=== PATIENT | female | born 1930 | race Caucasian/White ===

== ENCOUNTER → 2018-04-10 13:17 | Outpatient (CLI) | payer MEDICARE, OTHER ==
[2013-04-01 15:55] VITALS: BMI 25.8
--- NOTE | ~2018-04-10 | EC ---
PATIENT:STONEY DUNLAP DATE OF SERVICE: 04/10/18 SEX: F MEDICAL RECORD: [id number] DATE OF : [birth year] LOCATION:[facility] AGE OF PATIENT: 88 ADMISSION DATE: 04/10/18 REFERRING PHYSICIAN: INTERPRETING PHYSICIAN: DAVID GUSTAFSON MD ECHOCARDIOGRAM REPORT ECHO CHARGES 4 ECHO COMPLETE Date: 04/10/18 CLINICAL DIAGNOSIS: HEART MURMUR ECHOCARDIOGRAPHIC MEASUREMENTS (adult normal given) AC root (d.<3.7cm) 3.8 cm LV Septum d (<1.2 cm> 1.7 cm Valve Excursion 1.4 cm LV Septum (systole) 1.9 cm Left Atria (s.<4.0cm> 4.0 cm LVPW d(<1.2cm) 1.7 cm RV (d.<2.3cm) 3.3 cm LVPW (sytole) 1.9 cm LV diastole(<5.6CM) 3.6 cm MV E-F(>70mm/sec) cm LV systole 2.3 cm LVOT Diameter 1.7 cm MV exc.(>10mm) cm Est.ejection fraction (50-75%) % DOPPLER: LVIT cm/sec A 39.0 cm/sec E 118 cm/sec LA cm/sec RVSP 69 mmHg LVOT 104 cm/sec AOP1/2T m/s Asc. Ao 275 cm/sec RVOT 76 cm/sec RA cm/sec PA 134 cm/sec AV Gradient Peak 30.26mmHg AV Mean 15.41mmHg AV Area 1.0 cm MV Gradient Peak 6.91 mmHg MV Mean 2.29 mmHg MV Area cm COMMENTS: Bridge Carpenter: Elisabeth VALDEZ Glass Cutting Machine Operator: 1 Dr. Gustafson TAPE# PACS Pericardial Effusion N DATE OF SERVICE: 04/10/2018 FINDINGS: 1. Left ventricular chamber size is within normal limits. Left ventricular systolic function is normal. Overall ejection fraction estimated at 55%. 2. Left atrium is in the upper limits of normal at 4.0 cm. Right atrium and right ventricle chamber sizes are mildly dilated. 3. Valvular structures: Aortic valve demonstrates moderate calcific aortic stenosis, valve area calculates to 1.0 cm-squared and there is gradient of 30 mm across the valve. The remaining valvular structures have normal structure and ECHOCARDIOGRAM REPORT [id number] STONEY DUNLAP. 4. Doppler interrogation elsewise reveals mild mitral regurgitation, [id number] tricuspid regurgitation, no other valvular insufficiency or stenosis. Pulmonary systolic pressure is elevated estimated at 69 mmHg. 5. No evidence of pericardial effusion or left ventricular thrombus. TRANSINT:[id number] Voice Confirmation ID: [id number] DOCUMENT ID: [id number] DAVID GUSTAFSON MD at 1337 CC: [id number] DICTATION DATE: 04/10/18 184 LAN SPECIALIST: 04/10/182226 DEP CLI 04/10/18 [facility] [address] [place] [address]
[~2018-04-10 13:17] MED LIST: COVERA-HS240 MG; ISOPTIN SR240 MG PO; NORCO 10/325 TA1 TA1 PO
== END | disposition home or self-care (01) ==
LOC: D.ECHO 13:00
DX: R01.1 Cardiac murmur, unspecified (principal)

== ENCOUNTER → 2018-05-12 15:00 | Outpatient (CLI) | payer MEDICARE, OTHER ==
[2013-04-01 15:55] VITALS: BMI 25.8
== END | disposition home or self-care (01) ==
LOC: D.CT 15:00
DX: I65.23 Occlusion and stenosis of bilateral carotid arteries (principal); I73.9 Peripheral vascular disease, unspecified

== ENCOUNTER 2018-05-27 12:01 | Inpatient (IN) | payer MEDICARE, OTHER ==
[~2018-05-27] VITALS: Ht 165.1 cm; Wt 60.9 kg
[~2018-05-27 12:01] MED LIST changes: +CALAN SR240 MG PO; -COVERA-HS240 MG
[2018-05-27 12:47] LABS: ALBUMIN 3.7 g/dL (3.4-5.0); ANION GAP 18.3 mmol/L (8-16); BILIRUBIN - TOTAL 0.6 mg/dL (0.2-1.3); CALCIUM 9.2 mg/dL (8.5-10.1); CARBON DIOXIDE 22.7 mmol/L (21.0-32.0); CREATININE - SERUM 1.1 mg/dL (0.6-1.3); PROTEIN - SERUM 6.8 g/dL (6.4-8.2)
[2018-05-27] MEDS ORDERED: ASPIRIN EC81 M1 PO (12:51)
[2018-05-27 13:00] LABS: HEMATOCRIT 38.5 % (36.0-48.0); HEMOGLOBIN 12.8 g/dL (12-16); MCH 32.8 pg (26.0-34.0); MCHC 33.2 g/dL (31.0-37.0); MCV 98.7 fL (80.0-100.0); MEAN PLATELET VOLUME 11.4 fL (7.4-10.4); RBC 3.9 10x6/uL (4.00-5.40); RDW 13.4 % (11.5-14.5); WBC 9.5 10x3/uL (4.8-10.8)
[2018-05-27 13:20] LABS: APPEARANCE CLEAR (CLEAR); APTT 26.4 SECONDS (22.8-39.4); BILIRUBIN NEGATIVE (NEGATIVE); COLOR DK YELLOW (YELLOW); GLUCOSE NEGATIVE (NEGATIVE); INR 1.1 (0.85-1.17); KETONE NEGATIVE (NEGATIVE); NITRITE NEGATIVE (NEGATIVE); PROTEIN 1+ mg/dL (NEGATIVE); PROTIME 13.7 SECONDS (11.6-15.0); SPECIFIC GRAVITY 1.015 (1.005-1.020)
[2018-05-27 13:21] LABS: BACTERIA FEW /hpf (NONE SEEN); EPITHELIAL CELLS RARE /hpf (0-5); RED CELLS - URINE RARE /hpf (0-5)
[2018-05-29] VITALS (27 sets, daily range): BP systolic 93–157; BP diastolic 35–65; BMI 24.1; BMI 25.1
--- NOTE | 2018-05-29 18:00 | NUR ---
PT ARRIVED TO ROOM FROM OR AROUND 1753. ON 10L OF O2 VIA SIMPLE MASK. HAS INCISION ON R ANTERIOR NECK WITH DRESING CDI. RU CHEST ANATOLY DRAIN CDI. HAS L-SUBCLAVIAN CVL WITH CLEVIPREX AT 8ML/HR. NS AT 100ML/HR. NS INFUSION CHANGED TO 30ML/HR PER ORDERS. HAS L-RADIAL MEDARDO. SBP IN 120S. MCNULTY CATHETER IN PLACE. WITH YELLOW URINE NOTED. PEDAL PULSES PALPABLE. CONNECTED TO STUMP SHOOTER. A-LINE ZEROED. WILL CONTINUE TO MONITOR.
--- NOTE | 2018-05-29 18:15 | NUR ---
LOPRESSOR WAS GIVEN PER ORDERS. BP CONTINUED TO INCREASE. CLEVIPREX INCREASED TO 10ML/HR. NITRO RESTARTED AT 5ML/HR. WILL CONTINUE TO MONITOR.
--- NOTE | 2018-05-29 18:30 | NUR ---
HAVE BEEN TITRATING CLEVIPREX AND NITRO. CLEVIPREX PAUSED AT THIS TIME. NITRO IS AT 25ML/HR AT THIS TIME.
--- NOTE | 2018-05-29 18:45 | NUR ---
CLEVIPREX WAS ON PAUSE. BP ELEVATED AGAIN CLOSE TO 140S. CLEVIPREX RESTARTED AT 8ML/HR.
--- NOTE | 2018-05-29 19:02 | NUR ---
CLEVIPREX AT 12ML/HR. NITRO AT 30ML/HR HR.
--- NOTE | 2018-05-29 19:30 | NUR ---
REPORT RECEIVED, ASSESSMENT COMPLETE PER FLOW SHEET, PT SUPINE WITH HOB ELEVATED, ART LINE AND CVP ZEROED, NO ACUTE DISTRESS, ICE PACK PER ORDERS, PT AAOx4, SCD'S IN PLACE, PT WEARS DENTURES UPPER AND LOWER, PT DENIES PAIN OR SOB, PPP, VSS, WILL CONTINUE TO ASSESS
[2018-05-30] VITALS (57 sets, daily range): BP systolic 97–154; BP diastolic 34–82; Ht 165.1 cm; Wt 60.9 kg
--- NOTE | 2018-05-30 07:00 | NUR ---
SHIFT REPORT RECEIVED. RESTING WITH EYES CLOSED. AROUSES TO VOICE. HAS RIGHT ANTERIOR NECK INCISION WITH DRESSING CDI. RU CHEST ANATOLY DRAIN WITH BLOODY DRAINAGE DRESSING CDI. L-SUBCLAVIAN CVL WITH NITRO AT 5ML/HR. CEFAZOLIN INFUSING AT 100ML/HR VIA PIGGY BACK. HAS L-FOREARM RADIAL LINE. ZEROED AT THIS TIME. SBP IN 140S AT THIS TIME. WILL CONTINUE TO MONITOR.
--- NOTE | 2018-05-30 07:10 | NUR ---
NITRO DRIP INCREASED TO 10ML/HR TO HELP GET SBP WITHIN LIMITS.
--- NOTE | 2018-05-30 07:20 | NUR ---
CLEVIPREX INITIATED AT 4ML AT THIS TIME. BP REMAINS ELEVATED. WILL CONTINUE TO MONITOR AND TREAT.
--- NOTE | 2018-05-30 07:50 | NUR ---
CLEVIPREX AT 6ML/HR AT THIS TIME. PT SITTING UP IN BED EATING BREAKFAST. SBP CONTINUES HIGH. WILL CONTINUE TO MONITOR.
--- NOTE | 2018-05-30 08:15 | NUR ---
DR. ELLIOTT ASSESSED PT. ORDERED MEDARDO TO BE DISCONTINUED. ASKED TO CHECK BP ON BOTH ARMS AND COMPARE. IF BP IS SIMILAR ON BOTH ARMS. USE BP CUFF READINGS TO WEAN OFF NITRO AND CLEVIPREX. ORDERED LOPRESSOR 25MG TAB BID. FIRTS DOSE GIVEN PER ORDERS. WILL CONTINUE TO MONITOR.
--- NOTE | 2018-05-30 09:36 | NUR ---
CLEVIPREX HAS BEEN WEANED OFF. NITRO CONTINUES AT 10ML/HR. WILL CONTINUE TO WEAN TOLERATED. BP IN 130S-140S. CARLOS ESPINOZA AWARE OF BP AT THIS TIME. WILL CONTINUE TO MONITOR.
--- NOTE | 2018-05-30 10:40 | NUR ---
VERAPAMIL 240MG ER TAB GIVEN PER ORDERS. NITRO DRIP DECREASED TO 5ML/HR. WILL CONTINUE TO MONITOR AND WEAN OFF NITRO TOLERATED.
--- NOTE | 2018-05-30 10:50 | NUR ---
SBP 153. INCREASED NITRO DRIP BACK UP TO 10ML/HR. WILL CONTINUE TO MONITOR AND TREAT BP PER ORDERS.
--- NOTE | 2018-05-30 11:56 | NUR ---
VERIFIED WITH CARLOS IF PT COULD BE INCREASED TO REGULAR DIET. PT TOLERATING CLEAR LIQUIDS WELL. NO NAUSEA OR VOMITING NOTED. DIET CHANGED AT THIS TIME.
--- NOTE | 2018-05-30 12:25 | NUR ---
ANATOLY DRAIN DC'D PER ORDERS. TAGEDERM DRESSING APPLIED TO SITE. PT TOLERATED WELL. SBP IN 150S. INCREASED NITRO TO 12ML/HR. WILL CONTINUE TO MONITOR AND TREAT.
[2018-05-30 12:29] LABS: BASOPHILS 0 % (0-2); EOSINOPHILS 0 % (0-7); HEMATOCRIT 29.8 % (36.0-48.0); HEMOGLOBIN 9.8 g/dL (12-16); IMMATURE GRANULOCYTES 0.2 % (0-5); LYMPHOCYTES 10.5 % (15-50); MCH 32.1 pg (26.0-34.0); MCHC 32.9 g/dL (31.0-37.0); MCV 97.7 fL (80.0-100.0); MEAN PLATELET VOLUME 10.7 fL (7.4-10.4); MONOCYTES 10.2 % (2-11); NEUTROPHILS 79.1 % (40-80); RBC 3.05 10x6/uL (4.00-5.40); RDW 13.4 % (11.5-14.5); WBC 12.1 10x3/uL (4.8-10.8)
[2018-05-30 12:30] LABS: PLATELET COUNT 166 10x3/uL (130-400)
[2018-05-30 12:43] LABS: CALCIUM 8.2 mg/dL (8.5-10.1); CARBON DIOXIDE 24.2 mmol/L (21.0-32.0); POTASSIUM - SERUM 4.2 mmol/L (3.5-5.1)
--- NOTE | 2018-05-30 13:21 | NUR ---
EYES CLOSED APPEARS ASLEEP. SBP IN 130S. NITRO AT 12ML/HR. WILL CONTINUE TO MONITOR AND TREAT BP PER ORDERS.
--- NOTE | 2018-05-30 13:56 | NUR ---
FAMILY AT BEDSIDE. SBP IN 130S. I.S. BEST EFFORT 1500. NO FURTHER NEEDS. WILL CONTINUE TO MONITOR.
--- NOTE | 2018-05-30 15:23 | MORECARE ---
CASE MANAGEMENT DISCHARGE SUMMARY PATIENT: STONEY DUNLAP UNIT: [id number] ADM DATE: 05/29/18 AGE: 88 : [birth year] SEX: F ROOM/BED: [facility] AUTHOR: MARYJO CARLTON PHYSICIAN: REFERRING PHYSICIAN: YANA ELLIOTT MD DATE OF SERVICE: 05/30/18 Discharge Plan Patient Name: STONEY DUNLAP Facility: [facility]:[place] : 1930 Planned Disposition: Home or Self Care Anticipated Discharge Date: Discharge Date: Expected LOS: Initial Reviewer: [email or web address] Initial Review Date: 05/30/2018 Generated: 05/30/18 4:23 pm Patient Name: STONEY DUNLAP Page [id number] at 1523 All edits/amendments must be made on the electronic document DICTATION DATE: 05/30/18 152 COOKIE MIXER HELPER: BELINDA 05/30/18 152 RPT#: [id number] DC DATE: STATUS: ADM IN [facility] [address] [place] [address] END OF REPORT
--- NOTE | 2018-05-30 15:34 | MORECARE ---
CASE MANAGEMENT DISCHARGE SUMMARY PATIENT: STONEY DUNLAP UNIT: [id number] ADM DATE: 05/29/18 AGE: 88 : [birth year] SEX: F [facility] AUTHOR: MARYJO CARLTON PHYSICIAN: REFERRING PHYSICIAN: YANA ELLIOTT MD DATE OF SERVICE: 05/30/18 Discharge Plan Patient Name: STONEY DUNLAP Facility: [facility]:[place] : 1930 Planned Disposition: Home or Self Care Anticipated Discharge Date: Discharge Date: Expected LOS: Initial Reviewer: [email or web address] Initial Review Date: 05/30/2018 Generated: 05/30/18 4:34 pm Comments DCP- Discharge Planning Updated by [email or web address]: Fay Burris on 05/30/18 2:[address] Patient Name: STONEY DUNLAP Admission Status: Elective Accout number: [id number] Admission Date: 05-29-2018 : 1930 Admission Diagnosis:OCCLUSION AND STENOSIS OF RIGHT CAROTID ARTERY Attending: YANA ELLIOTT Current LOS: 1 Anticipated DC Date: Planned Disposition: Home or Self Care Primary Insurance: MEDICARE A & B Discharge Planning Comments: CM met with patient at bedside about discharge planning / needs. Patient states she lives alone. Patient states she plans to discharge to her home. States she will have family transport her home upon discharge. Denies need for home health or other community resource needs. States home environment is safe. Denies any discharge needs or concerns at this time. CM will continue to follow and assist as needed with discharge planning / needs. Armature Balancer: Fay Burris DCPIA - Discharge Planning Initial Assessment Updated by [email or web address]: Fay Burris on 05/30/18 3:27 pm * Is the patient Alert and Oriented? Yes * How many steps to enter\exit or inside your home? * PCP RAY RUFF APRN * [facility] * Preadmission Environment Home Alone * ADLs Independent * Other Equipment W/C, CANE, CRUTCHES * List name and contact numbers for known caregivers / representatives who currently or will assist patient after discharge: LINWOOD SHAW - DAUGHTER- [phone] * Verbal permission to speak to the caregivers and representatives has been obtained from the patient. N/A * Community resources currently utilized None * Additional services required to return to the preadmission environment? No * Can the patient safely return to the preadmission environment? Yes * Has this patient been hospitalized within the prior 30 days at any hospital? No Last DP export: 05/30/18 2:23 p Patient Name: STONEY DUNLAP Page [id number] at 1534 All edits/amendments must be made on the electronic document DICTATION DATE: 05/30/18 1533 CASE PACKER AND SEALER: BELINDA 05/30/18 153 RPT#: [id number] DC DATE: STATUS: ADM IN [facility] [address] [place] [address] END OF REPORT
--- NOTE | 2018-05-30 15:35 | NUR ---
SBP 112 AT THIS TIME. NITRO DRIP TURNED OFF A THIS TIME. WILL CONTINUE TO MINITOR.
--- NOTE | 2018-05-30 16:19 | NUR ---
HR DECREASED TO 30S AROUND 1600. PT WAS AAOX4. STATES "I FEEL FINE.". SBP IN 120S. DR. LEXI MORIN'S NURSE NOTIFIED OF CURRENT HEART RATE. ABG'S PERFORMED. HR CONTINUES IN 30S AND 40S. PT REMAINS AWAKE AND ALERT. WILL CONTINUE TO MONITOR.
--- NOTE | 2018-05-30 17:01 | NUR ---
SPOKE WITH PATIENCE. LOPRESSOR AND VERAPIMIL WILL BE PLACED ON HOLD FOR NOW. DR. ELLIOTT WANTS US TO KEEP CLOSE EYE ON PT, AND TO NOT ALLOW HER TO GET UP AT THIS TIME WITH A HR THIS LOW. PT RESTING COMFORTABLY. WILL CONTINUE TO MONITOR.
--- NOTE | 2018-05-30 18:23 | NUR ---
SBP IN 140S. HR REMAINS IN MID 40S. SON-IN-LAW AT BEDSIDE. PT RESTING COMFORTABLY. WILL CONTINUE TO MONITOR.
--- NOTE | 2018-05-30 19:00 | NUR ---
REPORT RECEIVED CARE ASSUMED. PT LAYING IN BED RESTING. NO SIGNS OF ACUTE DISTRESS NOTED. ASSESSMENT DONE SEE FLOW SHEET. SINUS SOPHIA NOTED HEMO STABLE.
--- NOTE | 2018-05-30 21:00 | NUR ---
CALL LIGHT ANSWERED. SOPHIA ON MONITOR. QUESTIONING AND TEACHING PROVIDED. WILL CONTINUE TO MONITOR.
--- NOTE | 2018-05-30 22:28 | NUR ---
RESTING HR IN LOW 60S. VISIBLE P WAVE NOTED. HEMO STABLE. WILL CONITNUE TO MONITOR.
[2018-05-31] VITALS (14 sets, daily range): BP systolic 96–161; BP diastolic 40–62
--- NOTE | 2018-05-31 05:00 | NUR ---
0300 REASSESSMENT DONE SEE FLOW SHEET. VSS. NO SIGNS OF ACUTE DSITRESS NOTED. 0500 COMPLETE BED BATH GIVEN. GOWN CHANGE. PT AMBULATED TO CHAIR MINIMAL ASSISTANCE GIVEN. NO SIGNS OF ACUTE DSITRESS NOTED WILL CONTINUE TO MONITOR.
--- NOTE | 2018-05-31 07:00 | NUR ---
REC'D CARE OF PT. UP IN CHAIR. DENIES NEEDS. WANTS TO "GO HOME". EXPLAINED TO HER THAT DR. ELLIOTT WOULD BE COMING AROUNG TO SEE HER AND HE WOULD BE DETERMINE IF SHE WAS READY TO GO HOME.
--- NOTE | 2018-05-31 07:37 | NUR ---
BREAKFAST TRAY SERVED.
--- NOTE | 2018-05-31 11:09 | NUR ---
DR. ELLIOTT AT BEDSIDE.
--- NOTE | 2018-05-31 11:43 | NUR ---
FAMILY AT BEDSIDE.
[2018-05-31] MEDS ORDERED: ACETAMINOPHEN325 MG PO (11:46)
[2018-05-31] MEDS ORDERED: CALAN SR120 MG PO (11:47)
--- NOTE | 2018-05-31 12:49 | NUR ---
DC'D LEFT SC CVL WITH TIP INTACT.
--- NOTE | 2018-05-31 12:49 | NUR ---
DC'D MCNULTY CATH FROM BLADDER.
--- NOTE | 2018-05-31 12:50 | NUR ---
FAMILY HELPING GET DRESSED TO GO HOME.
--- NOTE | 2018-05-31 13:14 | NUR ---
MEDS REVIEWED. DC INSTRUCTIONS REVIEWED. TRANSPORTED TO FRONT OF CVICU VIA WC AND ASISTED INTO VEHICLE WITHOUT DICCICULTY.
--- NOTE | 2018-06-01 13:27 | OP ---
PATIENT NAME: STONEY DUNLAP MEDICAL RECORD: [id number] :[birth year] LOCATION:[id number] ADMISSION DATE:05/29/18 SURGEON: JEROMY ELILOTT MD DATE OF OPERATION: 05/29/2018 SURGEON: Jeromy Elliott MD DIRECTOR MUSEUM OR ZOO: ANKIT Powell MD PROCEDURE PERFORMED: Right carotid endarterectomy. 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 ANESTHESIA: General endotracheal anesthesia. ESTIMATED BLOOD LOSS: 200 cc with Cell Saver retransfusion. SPECIMENS: Plaque. COMPLICATIONS: None. CONDITION: Stable. DISPOSITION: CV ICU. OPERATIVE FINDINGS: 1. Severely calcified plaque and a tortuous internal carotid. 2. EEG changes after clamping resolved with use of a shunt. 3. Neurologically intact to CV ICU. 4. Hypertension. PROCEDURE INDICATION: Left hemispheric TIA, severe right internal carotid artery stenosis and left carotid occlusion. PROCEDURE IN DETAIL: The patient was brought to the operating suite. General anesthesia was obtained, the patient was prepped and draped. An oblique incision was made in the patient's right neck. Subcutaneous tissue and platysma were divided. The common carotid artery was dissected out and encircled with a loop. External carotid and thyroid branch were dissected out and encircled with loop. Facial venous branch was divided between ligatures and suture ligatures. Internal carotid artery was dissected out distally well beyond the region tortuosity. Heparin was given. After the heparin had circulated, back flow on the internal carotid was controlled with a bulldog clamp and inflow was controlled with a vascular clamp. EEG was monitored and after about 30 seconds EEG changes were noted. Then, the clamps were removed to restore flow and EEG normalized. The shunt was prepared, then the artery was reclamped. Arteriotomy was made in the common carotid artery, taken through the region of dense calcification into a relatively normal region of internal carotid. Shunt was placed first proximally, then distally after flushing and with the shunt open, there were no further EEG or cerebral oximetry changes. The endarterectomy was begun in the common carotid artery where the plaque was divided and the severely calcified plaque was removed from the external carotid with an eversion endarterectomy. The plaque feathered well distally. Thorough irrigation was OPERATIVE REPORT [id number] HENRICH,STONEY L undertaken. All bits of loose debris were removed. A CorMatrix patch was sutured to the edge of the arteriotomy and prior to completing the anastomosis, the shunt was removed. Backbleeding was allowed from all 3 major vessels. Thorough irrigation was undertaken. Anastomosis was completed and flow restored first to the external carotid and then to the internal carotid. EEG remained normal. The interrupted sutures were used for hemostasis and the patient was hemodynamically stable. A drain was placed through a separate stab wound. Protamine was given. Thorough irrigation was undertaken. The wound was closed in 3 layers. Dermabond on the skin. Needle and sponge counts were reported as correct. The patient was taken to CV ICU in stable condition. TRANSINT:[id number] Voice Confirmation ID: [id number] DOCUMENT ID: [id number] JEROMY ELLIOTT MD at 1327 CC: JULITA CHAMBERS [id number] DICTATION DATE: 05/30/18 1253 MEDICAL PAYMENT POSTER: 05/30/18 2136 DIS IN 05/31/18 [place] [id number] [place] [address]
--- NOTE | 2018-06-02 10:31 | MORECARE ---
CASE MANAGEMENT DISCHARGE SUMMARY PATIENT: STONEY DUNLAP UNIT: [id number] ADM DATE: 05/29/18 AGE: 88 : [birth year] SEX: F ROOM/BED: [facility] AUTHOR: MARYJO CARLTON PHYSICIAN: REFERRING PHYSICIAN: YANA ELLIOTT MD DATE OF SERVICE: 06/02/18 Discharge Plan Patient Name: STONEY DUNLAP Facility: [facility]:[place] : 1930 Planned Disposition: Home or Self Care Anticipated Discharge Date: Discharge Date: 05/31/2018 Expected LOS: Initial Reviewer: [email or web address] Initial Review Date: 05/30/2018 Generated: 06/02/18 11:31 am Comments DCP- Discharge Planning Updated by [email or web address]: Fay Burris on 05/30/18 2:[address] Patient Name: STONEY DUNLAP Admission Status: Elective Accout number: [id number] Admission Date: 05-29-2018 : 1930 Admission Diagnosis:OCCLUSION AND STENOSIS OF RIGHT CAROTID ARTERY Attending: YANA ELLIOTT Current LOS: 1 Anticipated DC Date: Planned Disposition: Home or Self Care Primary Insurance: MEDICARE A & B Discharge Planning Comments: CM met with patient at bedside about discharge planning / needs. Patient states she lives alone. Patient states she plans to discharge to her home. States she will have family transport her home upon discharge. Denies need for home health or other community resource needs. States home environment is safe. Denies any discharge needs or concerns at this time. CM will continue to follow and assist as needed with discharge planning / needs. Blower Insulator: Fay Burris DCPIA - Discharge Planning Initial Assessment Updated by [email or web address]: Fay Burris on 05/30/18 3:27 pm * Is the patient Alert and Oriented? Yes * How many steps to enter\exit or inside your home? * PCP RAY RUFF APRN * Pharmacy [facility] * Preadmission Environment Home Alone * ADLs Independent * Other Equipment W/C, CANE, CRUTCHES * List name and contact numbers for known caregivers / representatives who currently or will assist patient after discharge: LINWOOD SHAW - DAUGHTER- [phone] * Verbal permission to speak to the caregivers and representatives has been obtained from the patient. N/A * Community resources currently utilized None * Additional services required to return to the preadmission environment? No * Can the patient safely return to the preadmission environment? Yes * Has this patient been hospitalized within the prior 30 days at any hospital? No Coverage Notice Reviewer: [email or web address] Jannie Del Valle Notice Issued Date-Time: 05/31/2018 12:25 Notice Type: IM Discharge Notice Notice Delivered To: Family Member Relationship to Patient: Son in Law Slurry Blender Name: Delivery Method: HAND - Hand Delivered Elvia Days: Prior Verbal Notification: Recipient Understood Notice: Yes Recipient Signature: Yes Med Rec Note Co-signed by Attending: Coverage Notice Comment: Last DP export: 05/30/18 2:34 p Patient Name: STONEY DUNLAP Page 17058 at 1031 All edits/amendments must be made on the electronic document DICTATION DATE: 06/02/18 1030 VISITING PROFESSOR: BELINDA 06/02/18 1030 RPT#: [id number] DC DATE:05/31/18 STATUS: DIS IN [facility] [address] [place] [address] END OF REPORT
== END 2018-05-31 13:20 | disposition home or self-care (01) | DRG 38 ==
LOC: D.CVICU 05-29 09:20 → D.SDCHOLD 05-29 09:20 → D.CVICU 05-29 14:39
PROVIDERS: ADMIT Thoracic Surgery (Cardiothoracic Vascular Surgery)
PROC: 03UK0JZ Supplement Right Internal Carotid Artery with Synthetic Substitute, Open Approach (ICD-10-PCS; 2018-05-29)
PROC: 03CK0ZZ Extirpation of Matter from Right Internal Carotid Artery, Open Approach (ICD-10-PCS; principal; 2018-05-29 14:15)
DX: I65.23 Occlusion and stenosis of bilateral carotid arteries (principal); L97.819 Non-pressure chronic ulcer of other part of right lower leg with unspecified severity; I10 Essential (primary) hypertension; I73.9 Peripheral vascular disease, unspecified

== ENCOUNTER 2018-05-31 22:44 | Inpatient (IN) | payer MEDICARE, OTHER ==
[~2018-05-31] VITALS: Ht 165.1 cm; Wt 61.7 kg
[~2018-05-31 22:44] MED LIST changes: +ACETAMINOPHEN325 MG PO; +ASPIRIN EC81 M1 PO; +CALAN SR120 MG PO
--- NOTE | 2018-05-31 23:45 | NUR ---
PATIENT LAYING IN BED. RESPIRATIONS ARE EVEN AND UNLABORED. NO DISTRESS NOTED. COLOR WNL FOR RACE. PT FAMILY MEMBER AT BEDSIDE. WILL CONTINUE TO MONITOR PATIENT.
[2018-05-31 23:59] LABS: BASOPHILS 0.1 % (0-2); EOSINOPHILS 0.4 % (0-7); IMMATURE GRANULOCYTES 0.7 % (0-5); LYMPHOCYTES 10.1 % (15-50); MCH 33.2 pg (26.0-34.0); MCHC 33.7 g/dL (31.0-37.0); MCV 98.7 fL (80.0-100.0); MEAN PLATELET VOLUME 11.3 fL (7.4-10.4); MONOCYTES 10.8 % (2-11); NEUTROPHILS 77.9 % (40-80); PLATELET COUNT 170 10x3/uL (130-400); RDW 13.6 % (11.5-14.5); WBC 13.5 10x3/uL (4.8-10.8)
[2018-06-01] VITALS (24 sets, daily range): BP systolic 99–184; BP diastolic 39–91; BMI 22.7
[2018-06-01 00:17] LABS: APPEARANCE CLEAR (CLEAR); BILIRUBIN NEGATIVE (NEGATIVE); COLOR YELLOW (YELLOW); GLUCOSE NEGATIVE (NEGATIVE); HEMATOCRIT 37.1 % (36.0-48.0); HEMOGLOBIN 12.5 g/dL (12-16); KETONE NEGATIVE (NEGATIVE); NITRITE NEGATIVE (NEGATIVE); PROTEIN NEGATIVE (NEGATIVE); RBC 3.76 10x6/uL (4.00-5.40); SPECIFIC GRAVITY 1.015 (1.005-1.020); UROBILINOGEN NORMAL (NORMAL)
[2018-06-01 00:20] LABS: ALBUMIN 3.2 g/dL (3.4-5.0); ANION GAP 17.4 mmol/L (8-16); BILIRUBIN - TOTAL 0.65 mg/dL (0.2-1.3); CARBON DIOXIDE 21.2 mmol/L (21.0-32.0); POTASSIUM - SERUM 3.6 mmol/L (3.5-5.1); PROTEIN - SERUM 6.8 g/dL (6.4-8.2)
[2018-06-01 00:29] LABS: THYROID STIMULATING HORMONE 1.37 uIU/mL (0.36-3.74)
--- NOTE | 2018-06-01 01:35 | NUR ---
PT LAYING IN BED. RESPIRATIONS ARE EVEN AND UNLABORED. NO DISTRESS NOTED AT THIS TIME. PT C/O BEING COLD. PROVIDED WITH ADDITIONAL BLANKETS. PT APPEARS TO BE SLEEPING BUT IS EASILY AROUSED BY VERBAL STIMULI. WILL CONTINUE TO MONITOR.
--- NOTE | 2018-06-01 04:02 | NUR ---
0320 PATIENT ARRIVED TO UNIT, ADMISSIONS ASSESSMENT AND HISTORY OBTAINED, SEE FLOW SHEETS FOR DETAILS. VSS, BED LOW AND LOCKED, CALL LIGHT IN REACH. NEEDS MET. WILL CONTINUE PLAN OF CARE.
[2018-06-01 05:45] LABS: BASOPHILS 0.1 % (0-2); EOSINOPHILS 0.1 % (0-7); HEMATOCRIT 33.4 % (36.0-48.0); HEMOGLOBIN 11.1 g/dL (12-16); IMMATURE GRANULOCYTES 0.5 % (0-5); LYMPHOCYTES 12.2 % (15-50); MCH 32.7 pg (26.0-34.0); MCHC 33.2 g/dL (31.0-37.0); MCV 98.5 fL (80.0-100.0); MEAN PLATELET VOLUME 11.2 fL (7.4-10.4); MONOCYTES 11.2 % (2-11); NEUTROPHILS 75.9 % (40-80); PLATELET COUNT 156 10x3/uL (130-400); RBC 3.39 10x6/uL (4.00-5.40); RDW 13.6 % (11.5-14.5); WBC 11.1 10x3/uL (4.8-10.8)
[2018-06-01 06:02] LABS: ALBUMIN 2.6 g/dL (3.4-5.0); ANION GAP 13.1 mmol/L (8-16); BILIRUBIN - TOTAL 0.56 mg/dL (0.2-1.3); CALCIUM 8.5 mg/dL (8.5-10.1); CARBON DIOXIDE 24.8 mmol/L (21.0-32.0); CREATININE - SERUM 0.8 mg/dL (0.6-1.3); POTASSIUM - SERUM 3.9 mmol/L (3.5-5.1); PROTEIN - SERUM 5.7 g/dL (6.4-8.2)
--- NOTE | 2018-06-01 07:00 | NUR ---
REC'D CARE OF PT. A&O X3.
--- NOTE | 2018-06-01 10:27 | NUR ---
RESTING WITH EYES CLOSED. RESPONSE APPROPRIATLY TO VERBAL STIMULI. A&O X3. DENIES NEEDS.
--- NOTE | 2018-06-01 10:28 | NUR ---
REASSESSMENT COMPLETED VIA FLOW SHEET. NO ACUTE CHANGES.
--- NOTE | 2018-06-01 11:30 | NUR ---
PLACED ON RA.
--- NOTE | 2018-06-01 11:30 | NUR ---
OOB TO BATHROOM WITH ASSISTANCE. AMBULATED WELL WITHOUT DIFFICULTY.
--- NOTE | 2018-06-01 12:09 | NUR ---
OOB TO BATHROOM WITHOUT DIFFICULTY.
--- NOTE | 2018-06-01 13:13 | NUR ---
DR. ELLIOTT HERE.
--- NOTE | 2018-06-01 13:14 | NUR ---
OOB TO BATHROOM WITHOUT DIFFICULTY. HAS HAD BLOOD IN URINE THROUGHOUT SHIFT. WILL DISCUSS WITH DR. ELLIOTT.
--- NOTE | 2018-06-01 14:15 | NUR ---
DISCUSSED BLOOD IN URINE WITH DR. ELLIOTT. ORDERS FOR UA AND CULTURE OBTAINED.
--- NOTE | 2018-06-01 14:34 | NUR ---
URINE SPECIMEN OBTAINED AND SENT TO LAB BEFORE ABX WERE STARTED.
--- NOTE | 2018-06-01 15:01 | NUR ---
REASSESSMENT COMPLETED PER FLOW SHEET. NO ACUTE CHANGES.
[2018-06-01 15:09] LABS: APPEARANCE CLOUDY (CLEAR); BILIRUBIN NEGATIVE (NEGATIVE); COLOR RED (YELLOW); GLUCOSE NEGATIVE (NEGATIVE); KETONE SMALL mg/dL (NEGATIVE); NITRITE NEGATIVE (NEGATIVE); PROTEIN 2+ mg/dL (NEGATIVE); SPECIFIC GRAVITY 1.015 (1.005-1.020)
[2018-06-01 15:10] LABS: BACTERIA MODERATE /hpf (NONE SEEN); RED CELLS - URINE 0-5 /hpf (0-5); WHITE CELLS - URINE 0-5 /hpf (0-5)
--- NOTE | 2018-06-01 15:17 | NUR ---
OOB TO BATHROOM WITHOUT DIFFICULTY. BLOODY URINE.
--- NOTE | 2018-06-01 16:43 | NUR ---
RESTING WITH EYES CLOSED. VSS.
--- NOTE | 2018-06-01 17:10 | NUR ---
DINNER TRAY SERVED.
--- NOTE | 2018-06-01 18:27 | NUR ---
REQUESTED LIGHT BE TURNED OFF. NAPPING.
--- NOTE | 2018-06-01 19:10 | NUR ---
REC'D TO CARE, LINUX UNIX ENGINEER PER FLOWSHEET. PT AWAKE AND ORIENTED. UP TO BR WITHOUT ASSIST, GAIT STEADY. URINE BLOODY. CHRIS-CARE PER PT AND BACK TO BED. SKIN ASSESSMENT/INCISIONS PER FLOWSHEET. ALARMS ON AND C/L IN REACH.
--- NOTE | 2018-06-01 21:00 | NUR ---
DAUGHTER AT BS VISITING.
--- NOTE | 2018-06-01 23:14 | NUR ---
REASSESSMENT PER FLOWSHEET, NO ACUTE CHANGES. VSS. PT DENIES NEEDS. ALARMS ON AND C/L IN REACH.
[2018-06-02] VITALS (14 sets, daily range): BP systolic 103–174; BP diastolic 41–96; Ht 165.1 cm; Wt 61.7 kg
--- NOTE | 2018-06-02 01:05 | NUR ---
RESTING WITH EYES CLOSED, VSS.
--- NOTE | 2018-06-02 03:28 | NUR ---
REASSESMENT PER FLOWSHEET, NO ACUTE CHANGES. VSS. NEURO WNL. PT DENIES NEEDS. C/L IN REACH.
--- NOTE | 2018-06-02 06:25 | NUR ---
DR. ELLIOTT NOTIFIED OF SBP 168 - NO NEW ORDERS.
--- NOTE | 2018-06-02 08:30 | NUR ---
PT ASSISTED UP TO TOILET AFTER BREAKFAST. URINATED. NO BLOOD NOTED. 500ML OUT.
--- NOTE | 2018-06-02 13:42 | NUR ---
son-in-law at bedside. awaiting pt discharge. dr nobles nurse notified he is here.
[2018-06-02] MEDS ORDERED: SULFAMETHOXAZOL1 TA3 PO (14:10)
--- NOTE | 2018-06-02 15:33 | NUR ---
DR ELLIOTT NURSE AT BEDSIDE SPEAKING WITH PT AND SON-IN-LAW. PIV TO RIGHT AND LEFT HANDS REMOVED, TIP INTACT. NO BLEEDING.
--- NOTE | 2018-06-02 15:51 | NUR ---
DISCHARGE INSTRUCTIONS REVIEWED WITH PT AND SON IN LAW. PT TRANSPORTED VIA WHEELCHAIR TO AWAITING VEHICLE.
--- NOTE | 2018-06-02 16:34 | MORECARE ---
CASE MANAGEMENT DISCHARGE SUMMARY PATIENT: STONEY DUNLAP UNIT: [id number] ADM DATE: 06/01/18 AGE: 88 : [birth year] SEX: F ROOM/BED: [facility] AUTHOR: MARYJO CARLTON PHYSICIAN: REFERRING PHYSICIAN: YANA ELLIOTT MD DATE OF SERVICE: 06/02/18 Discharge Plan Patient Name: STONEY DUNLAP [facility] : 1930 Planned Disposition: Home Anticipated Discharge Date: Discharge Date: 06/02/2018 Expected LOS: Initial Reviewer: [email or web address] Initial Review Date: 06/02/2018 Generated: 06/02/18 5:34 pm Patient Name: STONEY DUNLAP Page 20507 at 1634 All edits/amendments must be made on the electronic document DICTATION DATE: 06/02/18 1634 RN ALLERGY: BELINDA 06/02/18 1634 RPT#: [id number] DC DATE:06/02/18 STATUS: DIS IN [facility] [address] [place] [address] END OF REPORT
--- NOTE | 2018-06-02 16:42 | MORECARE ---
CASE MANAGEMENT DISCHARGE SUMMARY PATIENT: STONEY DUNLAP UNIT: [id number] ADM DATE: 06/01/18 AGE: 88 : [birth year] SEX: F ROOM/BED: [facility] AUTHOR: MARYJO CARLTON PHYSICIAN: REFERRING PHYSICIAN: YANA ELLIOTT MD DATE OF SERVICE: 06/02/18 Discharge Plan Patient Name: STONEY DUNLAP Facility: [facility]:[place] : 1930 Planned Disposition: Home Anticipated Discharge Date: Discharge Date: 06/02/2018 Expected LOS: Initial Reviewer: [email or web address] Initial Review Date: 06/02/2018 Generated: 06/02/18 5:42 pm DCPIA - Discharge Planning Initial Assessment Updated by [email or web address]: Fay Burris on 06/02/18 4:37 pm * Is the patient Alert and Oriented? Yes * How many steps to enter\exit or inside your home? * PCP RAY RUFF APRN * Pharmacy [facility] * Preadmission Environment Home Alone * ADLs Independent * Other Equipment W/C, CANE, CRUTCHES * List name and contact numbers for known caregivers / representatives who currently or will assist patient after discharge: LINWOOD SHAW - KATHY- [phone] * Verbal permission to speak to the caregivers and representatives has been obtained from the patient. Yes * Community resources currently utilized None * Additional services required to return to the preadmission environment? No * Can the patient safely return to the preadmission environment? Yes * Has this patient been hospitalized within the prior 30 days at any hospital? Yes Last DP export: 06/02/18 3:34 p Patient Name: STONEY DUNLAP Page [id number] at 1642 All edits/amendments must be made on the electronic document DICTATION DATE: 06/02/181640 EQUESTRIAN TRAINER: BELINDA 06/02/181640 RPT#: [id number] DC DATE:06/02/18 STATUS: DIS IN [facility] [address] [place] [address] END OF REPORT
--- NOTE | 2018-06-02 16:49 | MORECARE ---
CASE MANAGEMENT DISCHARGE SUMMARY PATIENT: STONEY DUNLAP UNIT: [id number] ADM DATE: 06/01/18 AGE: 88 : [birth year] SEX: F [facility] AUTHOR: MARYJO CARLTON PHYSICIAN: REFERRING PHYSICIAN: YANA ELLIOTT MD DATE OF SERVICE: 06/02/18 Discharge Plan Patient Name: STONEY DUNLAP Facility: [facility]:[place] : 1930 Planned Disposition: Home Anticipated Discharge Date: Discharge Date: 06/02/2018 Expected LOS: Initial Reviewer: [email or web address] Initial Review Date: 06/02/2018 Generated: 06/02/18 5:49 pm Comments DCP- Discharge Planning Updated by [email or web address]: Fay Burris on 06/02/18 3:[address] Patient Name: STONEY DUNLAP Admission Status: ER Accout number: [id number] Admission Date: 06-01-2018 : 1930 Admission Diagnosis: Attending: YANA ELLIOTT Current LOS: 1 Anticipated DC Date: Planned Disposition: Home Primary Insurance: MEDICARE A & B Discharge Planning Comments: CM met with patient at bedside about discharge planning / needs. Patient states she lives alone. Patient states she plans to discharge to her home. States she will have family transport her home upon discharge. Denies need for home health or other community resource needs. States home environment is safe. Denies any discharge needs or concerns at this time. CM will continue to follow and assist as needed with discharge planning / needs. Bill Clerk: Fay Burris DCPIA - Discharge Planning Initial Assessment Updated by [email or web address]: Fay Burris on 06/02/18 4:37 pm * Is the patient Alert and Oriented? Yes * How many steps to enter\exit or inside your home? * PCP RAY RUFF APRN * [facility] * Preadmission Environment Home Alone * ADLs Independent * Other Equipment W/C, CANE, CRUTCHES * List name and contact numbers for known caregivers / representatives who currently or will assist patient after discharge: LINWOOD SHAW - DAUGHTER- [phone] * Verbal permission to speak to the caregivers and representatives has been obtained from the patient. Yes * Community resources currently utilized None * Additional services required to return to the preadmission environment? No * Can the patient safely return to the preadmission environment? Yes * Has this patient been hospitalized within the prior 30 days at any hospital? Yes Last DP export: 06/02/18 3:42 p Patient Name: STONEY DUNLAP Page [id number] at 1649 All edits/amendments must be made on the electronic document DICTATION DATE: 06/02/181648 VENDING ATTENDANT: BELINDA 06/02/181648 RPT#: [id number] DC DATE:06/02/18 STATUS: DIS IN [facility] [address] [place] [address] END OF REPORT
== END 2018-06-02 15:52 | disposition home or self-care (01) | DRG 81 ==
LOC: D.ER 22:44 → D.EDHOLD 06-01 01:04 → D.CVICU 06-01 01:04
PROVIDERS: Emergency Medicine; ADMIT Thoracic Surgery (Cardiothoracic Vascular Surgery)
DX: R40.0 Somnolence (principal); N39.0 Urinary tract infection, site not specified; I10 Essential (primary) hypertension; F17.200 Nicotine dependence, unspecified, uncomplicated; B96.20 Unspecified Escherichia coli [E. coli] as the cause of diseases classified elsewhere; I65.23 Occlusion and stenosis of bilateral carotid arteries; R09.02 Hypoxemia; R11.2 Nausea with vomiting, unspecified; R30.0 Dysuria; R35.0 Frequency of micturition

== ENCOUNTER → 2018-12-12 13:02 | Outpatient (CLI) | payer MEDICARE, OTHER ==
[2018-06-02 12:52] VITALS: BMI 22.6
[~2018-12-12 13:02] MED LIST changes: +SULFAMETHOXAZOL1 TA3 PO
== END | disposition home or self-care (01) ==
LOC: D.US 13:00
PROVIDERS: ATTEND Thoracic Surgery (Cardiothoracic Vascular Surgery)
DX: I65.23 Occlusion and stenosis of bilateral carotid arteries (principal)